=== PATIENT | male | born 1995 | race Caucasian/White ===

== ENCOUNTER 2020-06-29 18:52 | Emergency (ER) | payer OTHER ==
[~2020-06-29] VITALS: Ht 182.9 cm; Wt 81.6 kg
[2020-06-29 19:32] VITALS: BP 128/68
[2020-06-29] MEDS ORDERED: ONDANSETRON 4 MG ODT PO ONE (20:35)
[2020-06-29] MEDS ORDERED: HYDROcodone/APAP 5/325 MG 1 TAB TAB PO ONE (20:45)
[2020-06-29 20:46] LABS: APPEARANCE,URINE CLEAR (CLEAR); BILIRUBIN,URINE NEGATIVE (NEGATIVE); BLOOD, URINE 3+ (NEGATIVE); COLOR,URINE YELLOW (YELLOW); LEUKOCYTE ESTERASE ,URINE NEGATIVE (NEGATIVE); NITRITE, URINE NEGATIVE (NEGATIVE); UGLUCOSE NEGATIVE (NEGATIVE)
[2020-06-29 21:20] LABS: RBC,URINE 20-50 /HPF (0-5)
[2020-06-29] MEDS ORDERED: cefTRIAXone 1,000 MG in LIDOCAINE MPF 1% 2.1 ML IM ONE (21:25)
[2020-06-29] MEDS ORDERED: cefTRIAXone 1,000 MG VIAL ONE (21:54)
[2020-06-29] MEDS ORDERED: LIDOCAINE MPF 1% 5 ML ONE (21:55)
[2020-06-29 21:56] LABS: BASOPHILS # (AUTO) 0.1 K/uL (0.00-0.22); BASOPHILS % (AUTO) 0.5 % (0.0-2.0); EOSINOPHILS % (AUTO) 0.1 % (0.0-4.0); LYMPHOCYTES # (AUTO) 1.1 K/uL (2.0-11.5); LYMPHOCYTES % (AUTO) 6.7 % (20.5-51.1); MEAN CORPUSCULAR HEMOGLOBIN 30 pg (27-31); MEAN CORPUSCULAR HGB CONC 33 g/dL (33-37); MEAN CORPUSCULAR VOLUME 89.7 fL (80-94); MONOCYTES # (AUTO) 0.4 K/uL (0.8-1.0); MONOCYTES % (AUTO) 2.6 % (1.7-9.3); NEUTROPHILS # (AUTO) 14.4 K/uL (1.8-7.7); NEUTROPHILS % (AUTO) 90.1 % (42.2-75.2); PLATELET COUNT (AUTO) 239 K/uL (140-450); RED BLOOD CELL COUNT(AUTO) 5.35 MIL/uL (4.20-6.10); RED CELL DISTRIBUTION WIDTH 13.2 % (11.6-13.7)
[2020-06-29 22:15] LABS: ALBUMIN 4.9 g/dL (3.4-5.0); ANION GAP 16.9 (8-16); CARBON DIOXIDE 27.4 mmol/L (21-32); POTASSIUM 3.3 mmol/L (3.5-5.1); TOTAL BILIRUBIN 0.9 mg/dL (0.0-1.0)
[2020-06-29] MEDS ORDERED: KETOROLAC 30 MG/ML VIAL IM ONE (22:15)
[2020-06-29] MEDS ORDERED: ONDANSETRON 4 MG/2 ML VIAL IVP SCH (22:35)
[2020-06-29] MEDS ORDERED: MORPHINE SULFATE 4 MG/ML SYR IVP SCH (22:35)
[2020-06-29] MEDS ORDERED: NACL 0.9% 1,000 ML IV ONE (22:35)
[2020-06-30 00:38] VITALS: BP 128/68
--- NOTE | 2020-06-30 00:38 | NUR ---
Patient discharged with v/s stable. Written and verbal after care instructions given and explained. Patient alert, oriented and verbalized understanding of instructions. Ambulatory with steady gait. All questions addressed prior to discharge. ID band removed. Patient advised to follow up with PMD. Rx of TORADOL, NORCO AND KEFLEX given. Patient educated on indication of medication including possible reaction and side effects. Opportunity to ask questions provided and answered.
--- NOTE | 2020-07-02 10:22 | NUR ---
LATE ENTRY -- NS INFUSION COMPLETED AT 0058 06/30
== END 2020-06-30 00:15 | disposition home or self-care (01) ==
LOC: MED 18:52
DX: N20.1 Calculus of ureter (principal)
CPT/HCPCS: 36415; 74176; 80053; 81001; 85025; 87086; 96361; 96372; 96374; 96375; 99284; J0696; J1885; J2001; J2270; J2405; J7030; Q0162